=== PATIENT | female | born 1975 | race Caucasian/White ===

== ENCOUNTER → 2020-09-27 15:01 | Outpatient (CLI) | payer BC, SELFPAY ==
[2020-09-27 17:00] LABS: Basophils # 0.1 K/mm3 (0-0.2); Basophils % 0.6 % (0.1-2.0); Eosinophils # 0.4 K/mm3 (0.0-0.4); Eosinophils % 4.9 % (0.1-12.0); Hematocrit 40.7 % (37.0-47.0); Hemoglobin 13.9 g/dL (12.2-16.2); Lymphocytes # 2.6 K/mm3 (0.7-4.5); Lymphocytes % 33.8 % (10-50); Mean Corpuscular HGB Conc 34.1 g/dL (31.8-35.4); Mean Corpuscular Volume 84.9 fl (81-99); Mean Platelet Volume 9.6 fl (7.4-10.4); Monocytes # 0.5 K/mm3 (0.1-1.0); Monocytes % 5.8 % (1.7-9.3); Neutrophils # 4.3 K/mm3 (1.8-7.8); Neutrophils % 54.9 % (37.0-80.0); Platelet Count 255 K/mm3 (142-424); Red Blood Count 4.79 M/mm3 (4.20-5.40); Red Cell Distribution Width 13.3 % (11.5-17.5); White Blood Count 7.8 K/mm3 (4.8-10.8)
[2020-09-27 17:25] LABS: Alanine Aminotransferase 25 U/L (12-78); Albumin Level 4.4 g/dl (3.5-5.0); Albumin/Globulin Ratio 1.6 (1.1-1.8); Alkaline Phosphatase 71 U/L (38-126); Anion Gap 10.3 mEq/L (5-15); Aspartate Amino Transferase 32 U/L (14-36); Bilirubin,Total 0.6 mg/dl (0.2-1.3); Blood Urea Nitrogen 14 mg/dl (7-17); Calcium 9.2 mg/dl (8.4-10.2); Carbon Dioxide 28 mmol/L (22.0-30.0); Chloride 104 mmol/L (98-107); Chol/HDL Ratio 5.6 (1-3.5); Cholesterol 228 mg/dl (140-200); Estimated Glomerular Filt Rate 108 ml/min (>60); GFR (African American) 131 ML/MIN (>60); Globulin 2.7 g/dL (1.3-3.2); Glucose 101 mg/dl (74-100); HDL Cholesterol 41 mg/dl (40-60); Potassium 3.3 mmoL/L (3.5-5.1); Sodium 139 mmol/L (136-145); Total Protein,Serum 7.1 g/dl (6.3-8.2); Triglycerides 298 mg/dl (30-150); VLDL Cholesterol 60 mg/dL (0-40)
[2020-09-27 17:36] LABS: Direct LDL Cholesterol 138.36 mg/dL (100-129)
== END ==
PROVIDERS: Visit Provider Family Medicine
DX: E78.5 Hyperlipidemia, unspecified (principal); Z79.899 Other long term (current) drug therapy
CPT/HCPCS: 80053; 80061; 84436; 84443; 85025

== ENCOUNTER 2021-01-01 07:45 | Emergency (ER) | payer BC, SELFPAY ==
[2021-01-01 07:47] VITALS: BP 143/88; PULSE 102; RESP 26; TEMP 37.1; O2SAT 96; BMI 31.6
--- NOTE | 2021-01-01 07:58 | ECG_ITS ---
APPROVED REPORT Exam: Resting ECG HR:91 bpm ECG Measurements Heart Rate 91 AXES MT 158 P 11 QRSd 98 QRS -42 QT 364 T 191 QTc 447 Conclusion Normal sinus rhythm Left axis deviation Left ventricular hypertrophy with repolarization abnormality Abnormal ECG Electronically signed by : Srikanth Mcnamara MD 01/02/2021 16:03:47
--- NOTE | 2021-01-01 08:05 | XR_ITS ---
PROCEDURE INFORMATION: Exam: XR Chest Exam date and time: 01/01/2021 8:05 AM Age: 45 years old Clinical indication: Cough and dyspnea and fever and other: Chest tightness; Patient HX: HX of patient with covid; Additional info: Chest pain TECHNIQUE: Imaging protocol: XR of the chest. Views: 1 view. COMPARISON: No relevant prior studies available. FINDINGS: Lungs: There is airspace disease in both lungs. This may be secondary to multifocal pneumonia. Pleural spaces: Unremarkable. No pleural effusion. No pneumothorax. Heart/Mediastinum: Unremarkable. No cardiomegaly. Bones/joints: Unremarkable. IMPRESSION: There is airspace disease in both lungs. This may be secondary to multifocal pneumonia.
--- NOTE | 2021-01-01 08:11 | HMH.EDGENADL ---
ED Disposition Clinical Impression: Pneumonia due to COVID-19 virus Disposition: Home, Self-Care Condition on Discharge: Good Instructions: Pneumonia-Adult Prescriptions: Azithromycin 250 mg PO DAILYDM 5 Days #6 tab Transmission Status: Pending to [facility] Cefdinir [Omnicef 300mg Capsule] 300 mg PO BID #20 cap Transmission Status: Pending to [facility] Referrals: Myke Goodrich MD [Primary Care Provider] - - Critical Care Critical Care Time: No Attestation: On , the high probability of a clinically significant, sudden or life threatening deterioration of the following system(s) required my full and direct attention, intervention and personal management. The time I documented below is in addition to time spent performing reported procedures but includes the following listed in this critical care notation. Medical Decision Making - Medical Records Medical records reviewed: Yes: I reviewed the patient's medical records. - Wilfredo Inquiry Pt receiving controlled substance: No Vital Signs: 01/01/21 07:47 Temperature 98.8 F Temperature Source Oral Pulse Rate [Radial] 102 H Respiratory Rate 26 H Blood Pressure [Right Arm] 143/88 H Blood Pressure Mean [Right Arm] 106 Blood Pressure Position [Right Arm] Sitting 02 Sat by Pulse Oximetry 96 Oxygen Delivery Method Room Air - Lab Data Lab Results 01/01/21 08:00: WBC 5.7, RBC 5.23, Hgb 15.3, Hct 45.1, MCV 86.1, MCH 29.3, MCHC 34.0, RDW 13.0, Plt Count 193, MPV 7.9, Neut % (Auto) 78.4, Lymph % (Auto) 16.3, [place] % (Auto) 4.7, Eos % (Auto) 0.0 L, Baso % (Auto) 0.4, Neut # (Auto) 4.4, Lymph # (Auto) 0.9, [place] # (Auto) 0.3, Eos # (Auto) 0.0, Baso # (Auto) 0.0 01/01/21 08:00: SARS-CoV-2 (PCR) Detected A, Influenza A Untype (PCR) Not detected, Influenza Type B (PCR) Not detected 01/01/21 08:00: Sodium 137, Potassium 3.0 L, Chloride 97 L, Carbon Dioxide 29, Anion Gap 14.0, BUN 14, Creatinine 0.80, Estimated Creat Clear 109, Estimated GFR 77, Est GFR ( Amer) 93, Glucose 126 H, Calcium 9.0, Total Bilirubin 0.2, AST 71 H, ALT 72, Alkaline Phosphatase 79, Troponin I < 0.01, Total Protein 7.2, Albumin 4.1, Globulin 3.1, Albumin/Globulin Ratio 1.3 Result diagrams: 01/01/21 08:00 01/01/21 08:00 Orders (Tests/Meds): ED MEDICATIONS Generic Name Dose Route Start Last Admin Trade Name Smith PRN Reason Stop Dose Admin Lactated Ringer's 1,000 mls @ 999 mls/hr 01/01/21 09:00 Lactated Ringer's 1000 Ml Bag IV 01/01/21 10:00 .Q1H1M [facility] ORDERS Category Date Time Status XR chest portable Stat Exams 01/01/21 08:05 Taken BNP [Brain Natriuretic Peptide] Stat Lab 01/01/21 08:00 Received Troponin I Q3H Lab 01/01/21 11:15 Ordered Troponin I Q3H Lab 01/01/21 14:15 Ordered Medical Decision Narrative: Pt to the ED today for shortness of breath and chest tightness. DDx includes post viral pneumonia, ACS, pulmonary edema, viral pnuemonia. Workup to include CBC, CMP, troponin 0 and 3 hr, CXR. Pt appears to feel unwell on evaluation, no acute distress, no hypoxia, HR 102, no fever, although feels warm to the touch. XR independently interpreted with evidence of bilateral infiltrates in the mid lower zones, consistent with physical exam. Could be pna or pulmonary edema. Will further evaluate with bedside cardiac US and pulmonary US. Bedside ECHO shows visually normal EF, no enlarged RV, no heart strain, no pericardial effusion. Pts COVID 19 testing is positive, and I informed the patient. Pts initial troponin within normal limits and I have added on a BNP. I told patient that normally we would obtain a second troponin at 3 hours, however, she states that she would prefer to go home. Although I do believe it is unlikely for patient to be in ACS, nany given that her pain has been ongoing and inconsistent, atypical for 3 weeks now, i advised that the safer option is to get the full set and discussed the risks of not getting this test. She pre
[2021-01-01 08:12] LABS: Influenza A, PCR Not Detected (NotDetected); Influenza B, PCR Not Detected (NotDetected)
[2021-01-01 08:15] LABS: Basophils % 0.4 % (0.1-2.0); Hematocrit 45.1 % (37.0-47.0); Hemoglobin 15.3 g/dL (12.2-16.2); Lymphocytes # 0.9 K/mm3 (0.7-4.5); Lymphocytes % 16.3 % (10-50); Mean Corpuscular Hemoglobin 29.3 pg (27.0-31.2); Mean Corpuscular Volume 86.1 fl (81-99); Mean Platelet Volume 7.9 fl (7.4-10.4); Monocytes # 0.3 K/mm3 (0.1-1.0); Monocytes % 4.7 % (1.7-9.3); Neutrophils # 4.4 K/mm3 (1.8-7.8); Neutrophils % 78.4 % (37.0-80.0); Platelet Count 193 K/mm3 (142-424); Red Blood Count 5.23 M/mm3 (4.20-5.40); White Blood Count 5.7 K/mm3 (4.8-10.8)
[2021-01-01 08:16] LABS: Chloride 97 mmol/L (98-107); Sodium 137 mmol/L (136-145)
[2021-01-01 08:19] LABS: Alanine Aminotransferase 72 U/L (12-78); Albumin Level 4.1 g/dl (3.5-5.0); Albumin/Globulin Ratio 1.3 (1.1-1.8); Alkaline Phosphatase 79 U/L (38-126); Aspartate Amino Transferase 71 U/L (14-36); Bilirubin,Total 0.2 mg/dl (0.2-1.3); Blood Urea Nitrogen 14 mg/dl (7-17); Carbon Dioxide 29 mmol/L (22.0-30.0); Creatinine Clearance Estimated 109 mL/min (50-200); Estimated Glomerular Filt Rate 77 ml/min (>60); GFR (African American) 93 ML/MIN (>60); Globulin 3.1 g/dL (1.3-3.2); Total Protein,Serum 7.2 g/dl (6.3-8.2)
[2021-01-01 08:20] LABS: Glucose 126 mg/dl (74-100)
--- NOTE | 2021-01-01 08:30 | PC.NURSE ---
Critical potassium called to Martha chun RN
[2021-01-01 08:38] LABS: Coronavirus 19, PCR Detected (NotDetected)
[2021-01-01 08:40] LABS: Troponin I < 0.01 ng/ml (0.00-0.034)
[2021-01-01 09:07] LABS: NT Pro Brain Natriuretic Pep. 49.7 pg/mL (0-125)
[2021-01-01 09:59] VITALS: BP 137/87; PULSE 102; RESP 28; TEMP 37.1; O2SAT 98
== END 2021-01-01 10:00 | disposition home or self-care (01) ==
PROVIDERS: Emergency Provider Student in an Organized Health Care Education/Training Program; PCP Emergency Medicine
DX: U07.1 COVID-19 (principal); J12.82 Pneumonia due to coronavirus disease 2019; I10 Essential (primary) hypertension; E78.5 Hyperlipidemia, unspecified; M79.7 Fibromyalgia
CPT/HCPCS: 71045; 80053; 83880; 84484; 85025; 93005; 96365; 99283; C9803; U0003; U0005

== ENCOUNTER → 2021-01-20 15:13 | Outpatient (CLI) | payer BC, SELFPAY ==
--- NOTE | 2021-01-20 15:21 | XR_ITS ---
PROCEDURE: XR CHEST PORTABLE CLINICAL HISTORY: covid pneumonia COMPARISON: CR XR CHEST PORTABLE from 01/01/2021 FINDINGS: Borderline cardiomegaly without failure. There are some residual atelectatic changes in both the mid lungs with some minimal opacification in the right midlung. No acute bony abnormalities. IMPRESSION: Persistent but improving right midlung infiltrate with some residual atelectatic or fibrotic changes in both mid lungs Dictated by: Otto Orozco MD 01/20/2021 15:47 Otto Orozco MD in [place] 01/20/2021 15:47
== END ==
PROVIDERS: PCP Family Medicine; Visit Provider Family Medicine
DX: R05 Cough (principal); Z86.16 Personal history of COVID-19
CPT/HCPCS: 71045

== ENCOUNTER 2021-07-17 09:10 | Emergency (ER) | payer BC, SELFPAY ==
--- NOTE | 2021-07-17 09:18 | HMH.EDUTC ---
[facility] Disposition Clinical Impression: Viral syndrome, Bronchitis Disposition: Home, Self-Care Condition on Discharge: Good Instructions: DI for Viral Syndrome, DI for Acute Bronchitis Additional Instructions: Drink plenty of fluids. Take tylenol or ibuprofen for pain or fever. Take the medications as directed. Follow up with your regular doctor. GO TO THE ER FOR ANY WORSENING SYMPTOMS Prescriptions: methylPREDNISolone [Medrol] 4 mg PO DIRECTED 6 Days #21 packet Transmission Status: Pending to [facility] Azithromycin [Z-Elroy 250mg Tab*] 250 mg PO UD DOSE PK #6 tab Transmission Status: Pending to [facility] Referrals: Provider,Referral, [Primary Care Provider] - Forms: Work/School Release Time of Disposition: 10:02 Medical Decision Making - Medical Records Medical records reviewed: No: I reviewed the patient's medical records. - Wilferdo Inquiry Pt receiving controlled substance: No Vital Signs: 07/17/21 09:24 Temperature 98.9 F Temperature Source Oral Pulse Rate [Left] 115 H Respiratory Rate 18 Blood Pressure [Right Arm] 149/88 H Blood Pressure Mean [Right Arm] 108 02 Sat by Pulse Oximetry 98 - Lab Data Lab Results 07/17/21 09:24: Influenza Type A Ag Negative, Influenza Type B Ag Negative Orders (Tests/Meds): ORDERS Category Date Time Status Rapid Strep Scrn Group A [Strep Scrn Group A (Rapid)] Lab 07/17/21 09:25 Received Stat [facility] HPI - General Stated complaint: LOPEZ, fever, bodyaches Time Seen by Provider: 07/17/21 09:19 - History of Present Illness Provider Complaint: She states that for the past 1 day, she has been having chills, low grade fever, cough and congestion. - Related Data Home Medications Medication Instructions Recorded Confirmed aspirin 325 mg tablet 325 mg PO BID 11/28/18 02/08/21 meloxicam 7.5 mg tablet 7.5 mg PO BID tab 11/28/18 02/08/21 Previous Rx's Medication Instructions Recorded phenazopyridine 200 mg tablet 200 mg PO TID PRN 0 Days #6 tab 06/12/19 ondansetron HCl 4 mg tablet 4 mg PO Q8H PRN #20 tab 12/29/20 topiramate 100 mg tablet 100 mg PO DAILY #30 tab 12/30/20 benzonatate 200 mg capsule 200 mg PO TID PRN #60 cap 01/20/21 azithromycin 500 mg tablet 500 mg PO DAILY 3 Days #3 tab 02/08/21 methylprednisolone 4 mg tablets in See Rx Instructions PO PER PKG DIR 02/08/21 a dose pack #21 tab chlorthalidone 50 mg tablet 50 mg PO DAILY #30 tab 05/24/21 pravastatin 20 mg tablet 20 mg PO QHS #30 tab 05/24/21 Azithromycin [Z-Elroy 250mg Tab*] 250 mg PO UD DOSE PK #6 tab 07/17/21 methylPREDNISolone [Medrol] 4 mg PO DIRECTED 6 Days #21 07/17/21 packet Allergies Allergy/AdvReac Type Severity Reaction Status Date / Time No Known Allergies Allergy Verified 02/08/21 16:37 [facility] History - Hepatitis A Screen Attestation statement:: This patient has been screened for Hepatitis A risk factors. I have reviewed the patient's past medical history: Yes Medical History: Reports:: Hyperlipidemia, Hypertension Denies:: Cancer, Chronic Obstructive Pulmonary Disease (COPD), Diabetes Mellitus Type 1, Diabetes Mellitus Type 2, Internal Pacemaker, Pulmonary Embolism, Seizures, Transient Ischemic Attacks (TIA) Other Medical History: Denies: Arthritis, Fibromyalgia, Thyroid Disease Other Surgeries: Yes: Appendectomy, Colonoscopy, Colon Resection, Hernia Repair, Hysterectomy-Total, Hysterectomy-Partial, Other. No: Pacemaker Amputation: No Fractures: Yes Comment: Hernia removal, hemorrhoid removal - Social History Smoking Status: Never smoker Alcohol Intake: current Alcohol Intake Frequency:: holidays/special occasions only Substance Use Type: denies use Occupational Status: employed Housing: house Household Members: family Family Hx:: Thyroid Disorder, Diabetes ROS Obtained: Yes All systems reviewed & no additional complaints - Constitutional Constitutional: Reports as per HPI - Eyes Eyes
[2021-07-17 09:24] VITALS: BP 149/88; PULSE 115; RESP 18; TEMP 37.2; O2SAT 98; BMI 30.8
[2021-07-17 09:43] LABS: UTC Influenza A Antigen Negative (Negative)
[2021-07-17 09:44] LABS: UTC Influenza B Antigen Negative (Negative)
[2021-07-17 10:05] LABS: Strep Scrn Group A (Rapid) Negative (Negative)
[2021-07-17 10:10] VITALS: BP 149/88; PULSE 115; RESP 18; TEMP 37.2
== END 2021-07-17 10:10 | disposition home or self-care (01) ==
PROVIDERS: Emergency Provider Nurse Practitioner Family
DX: J20.9 Acute bronchitis, unspecified (principal); B34.9 Viral infection, unspecified; I10 Essential (primary) hypertension
CPT/HCPCS: 87430; 87804; 99213; G0463

== ENCOUNTER → 2021-10-31 14:36 | Outpatient (CLI) | payer BC, SELFPAY ==
--- NOTE | 2021-10-31 14:45 | XR_ITS ---
FINAL REPORT TECHNIQUE: 5 views CLINICAL HISTORY: RT LEG PAIN,ANESTHESIA OF SKIN FINDINGS: LUMBAR SPINE Five views of the lumbar spine were obtained. There is no acute fracture. There is no malalignment. The disc spaces are preserved. There is no soft tissue abnormality. IMPRESSION: No acute bony abnormality. Reviewed, Interpreted and Dictated by Sivkaumar Lanier MD Transcribed by Jovanna West Authenticated and [facility]
== END ==
PROVIDERS: PCP Family Medicine; Visit Provider Nurse Practitioner Family
DX: M79.604 Pain in right leg (principal); R20.0 Anesthesia of skin; R20.2 Paresthesia of skin
CPT/HCPCS: 72110

== ENCOUNTER → 2021-11-02 09:37 | Outpatient (CLI) | payer BC, SELFPAY ==
[2021-11-02 10:05] LABS: Basophils # 0.2 K/mm3 (0-0.2); Basophils % 1.9 % (0.1-2.0); Eosinophils # 0.4 K/mm3 (0.0-0.4); Eosinophils % 4.3 % (0.1-12.0); Hematocrit 43.8 % (37.0-47.0); Hemoglobin 14.2 g/dL (12.2-16.2); Lymphocytes # 2.1 K/mm3 (0.7-4.5); Lymphocytes % 26.3 % (10-50); Mean Corpuscular HGB Conc 32.5 g/dL (31.8-35.4); Mean Corpuscular Volume 89.3 fl (81-99); Mean Platelet Volume 8.7 fl (7.4-10.4); Monocytes # 0.5 K/mm3 (0.1-1.0); Monocytes % 5.6 % (1.7-9.3); Neutrophils % 61.9 % (37.0-80.0); Platelet Count 218 K/mm3 (142-424); White Blood Count 8.1 K/mm3 (4.8-10.8)
[2021-11-02 10:20] LABS: Alanine Aminotransferase 35 U/L (12-78); Albumin Level 4.3 g/dl (3.5-5.0); Alkaline Phosphatase 73 U/L (38-126); Anion Gap 11.4 mEq/L (5-15); Aspartate Amino Transferase 36 U/L (14-36); Bilirubin,Indirect 0.2 mg/dL (0.0-0.9); Bilirubin,Total 0.2 mg/dl (0.2-1.3); Bilirubin,Unconjugated 0.6 mg/dL (0.0-1.1); Blood Urea Nitrogen 21 mg/dl (7-17); Calcium 9.5 mg/dl (8.4-10.2); Carbon Dioxide 32 mmol/L (22.0-30.0); Chloride 101 mmol/L (98-107); Chol/HDL Ratio 5.2 (1-3.5); Cholesterol 220 mg/dl (140-200); Estimated Glomerular Filt Rate 90 ml/min (>60); GFR (African American) 109 ML/MIN (>60); Glucose 114 mg/dl (74-100); HDL Cholesterol 42 mg/dl (40-60); Magnesium 1.7 mg/dl (1.6-2.3); Potassium 3.4 mmoL/L (3.5-5.1); Sodium 141 mmol/L (136-145); Triglycerides 175 mg/dl (30-150); VLDL Cholesterol 35 mg/dL (0-40)
[2021-11-02 10:30] LABS: Direct LDL Cholesterol 149.27 mg/dL (100-129)
[2021-11-02 10:50] LABS: Thyroid Stimulating Hormone 1.14 uIU/mL (0.465-4.68)
== END ==
PROVIDERS: PCP Nurse Practitioner Family; Visit Provider Nurse Practitioner
DX: R06.00 Dyspnea, unspecified (principal); R07.9 Chest pain, unspecified; R42 Dizziness and giddiness; R53.83 Other fatigue; R94.31 Abnormal electrocardiogram [ECG] [EKG]
CPT/HCPCS: 36415; 80048; 80061; 80076; 83735; 84439; 84443; 85025

== ENCOUNTER → 2021-11-09 12:12 | Outpatient (CLI) | payer BC, SELFPAY ==
--- NOTE | 2021-11-09 12:37 | NM_ITS ---
APPROVED REPORT Exam: Nuclear Stress Test Indication: chest pain..short of breath Patient Location: Outpatient Stress Tech: Kate Gage RI Tech:Priscilla Salas NANCY RT(R)(N) Ht: 5 ft 2 in Wt: 182 lbs Bra Size: 38dd HR: 74 bpm BP: 156/101 mmHg BSA: 1.84 m2 TID: 1.10 BMI: 33.2 History: chest pain..short of breath Procedure: Patient exercised on Manan protocol 6 minutes and sec, resting heart rate 74 bpm, resting blood pressure 156/101 mmHg, with exercise maximum heart rate achived was 146 bpm which is 84 % of the maximum predicted heart rate and blood pressure was 210/110 mmHg. Patient denied any complaint of chest pain. Patient has Adequate exercise capacity, achieved 7.0 METs of workload on treadmill, the blood pressure response to exercise was Hypertensive. Electrocardiogram Resting electrocardiogram shows sinus rhythm, with exercise there is less than 1.[address] segment depression noted from the baseline EKG. The EKG portion of the exercise Myoview was nondiagnostic as patient did not achieve the target heart rate. Cardiac Stress and Resting SPECT Images: Cardiac Stress and Resting SPECT images were obtained using technetium 99m Myoview 32.0 mCi stress and 10.24 mCi at rest. Gated SPECT for analysis of segmental wall motion and calculation of the ejection fraction also done. Prone images were also obtained. Cardiac stress and rest SPECT images show uniform myocardial activity without segmental perfusion abnormality, computer derived ejection fraction is 50% with no regional wall motion abnormality, right ventricle is normal size and contractility. Conclusion: 1. The EKG portion of exercise Myoview is nondiagnostic as patient did not achieve the target heart rate, patient has adequate exercise capacity achieved 7 METS of workload on treadmill, the blood pressure response to exercise was hypertensive, this was started to chest pressure and shortness of breath. 2. No scintigraphic evidence of reversible ischemia seen at this level of exercise, computer derived ejection fraction 50% with no regional wall motion abnormality, right ventricle is normal size and contractility. 3. Clinically abnormal stress test as patient complains of chest pressure and shortness of breath however perfusion imaging did not show any reversible ischemia. Clinical correlation is recommended. Electronically signed by : Biju Becerril MD 11/10/2021 06:33:16
--- NOTE | 2021-11-09 12:42 | CA_ITS ---
APPROVED REPORT EXAM: Comprehensive 2D, Doppler, and color-flow Echocardiogram [employer] Foreman: Debbie Jade RT(R) Ht: 5 ft 3 in Wt: 182lbs BSA: 1.86 BP: 144/93 mmHg Indications: CP, SOB, LIMON, HTN, HLD, dizziness, ABN EKG, fatigue. 2D Dimensions LVOT 2.00 cm (M/F) 1.5-2.5 LVEF (Girard's) 43.90 % F: 54 - 74 LV Volume 93.00 mL F: 46 - 106 LV Volume Index 50.27 mL/m2 F: 29 - 61 LA Volume 26.10 mL LA Volume Index 14.10 mL/m2 (M/F) 16-34 M-Mode Dimensions RVDd 2.93 cm (0.9-2.6) LA Diam 3.51 cm (1.9-4.0) LVDd 5.58 cm (3.5-5.7) Ao Diam 2.66 cm (2.0-3.7) LVDs 4.10 cm (3.5-5.7) IVSd 0.96 cm (0.6-1.1) PWd 0.84 cm (0.6-1.1) EF (Teich) 51.30% FS 26.50% EDV (Teich) 152.40 mL ESV (Teich) 74.20 mL LV Diastology E Decel Time 137.00 (160-240 msec) E/A Ratio 0.7 MED E' 4.80 (< 7 cm/sec) E'/MED E' Ratio 13.13 (>14) LAT E' 7.90 (<10 cm/sec) E/LAT E' Ratio 7.97 (>14) Mitral Valve MV E Max Jesus. 63.00 (40-130 cm/s) MV A Velocity 91.00 (40-130 cm/s) E/A Ratio 0.70 MV Decel. Time 137.00 (160-240 ms) MV PHT 40.00 ms Left Ventricle Left atrium is mildly enlarged, left ventricle is normal size mild concentric left ventricular hypertrophy, estimated ejection fraction 55% with no regional wall motion abnormality, grade 1 diastolic dysfunction seen without tissue Doppler evidence of raise left atrial pressure. Right Ventricle Right atrium and right ventricle are mildly enlarged with normal contractility. Aortic Valve Aortic valve is minimally thickened and fibrosed there is no aortic stenosis or aortic insufficiency. Mitral Valve Mitral valve grossly normal, there is trace mitral regurgitation. Tricuspid Valve Tricuspid grossly normal, there is trace tricuspid regurgitation, tricuspid regurgitation jet velocity is inadequate for calculation of the right ventricular systolic pressure. Pulmonic Valve Pulmonic valve is poorly visualized. Great Vessels Aortic root is normal size. Inferior vena cava is poorly visualized. Pericardium No significant pericardial effusion noted. Conclusion 1. Mild biatrial enlargement, normal left ventricular size, mild concentric left ventricular hypertrophy, estimated ejection fraction 55% with no regional wall motion abnormality, grade 1 diastolic dysfunction seen without tissue Doppler evidence of raise left atrial pressure. 2. Trace mitral and tricuspid regurgitation. 3. No significant pericardial effusion. 4. Inferior vena cava is poorly visualized. Electronically signed by : Biju Becerril MD 11/10/2021 06:19:14
--- NOTE | 2021-11-09 13:53 | HMH.ITSHM ---
Current Home Medications as stated by this patient Steffi Elias or desk representative. []TOPIRAMATE ROSUVASTATIN PRAVASTATIN NAPROXEN FAMOTIDINE CHLORTHALIDONE ASA
--- NOTE | 2021-11-09 14:12 | CA_ITS ---
APPROVED REPORT Exam: Exercise Treadmill Technologist: Kate Champion, Ht: 5 ft 3 in Wt: 182 lbs BSA: 1.86 m2 HR: 68 bpm BP: 160/93 mmHg Medical History Medications: Aspirin,,,,, Pravastatin,,,,, TopIRAMATE,,,,, Naproxen,,,,, Famotidine,,,,, CHlorthalidone,,,,, Stress Test Details Test: Manan HR Resting HR: 74 bpm Max Heart Rate (APMHR): 173.097712 bpm Max HR Achieved: 146 bpm Target HR (85% APMHR): 147.453593 bpm % of APMHR: 84.39 Recovery HR: 82 bpm BP Resting BP: 156/101 mmHg Max BP: 210/110 mmHg Recovery BP: 175.0/99.0 mmHg ECG Resting ECG: NSR, L axis deviation, slow R wave progression Clinical Exercise duration: 06:00 min Highest Stage Achieved: II Exercise capacity: 7.0 METs Stress ECG Conclusion Exercised 6:00 on Manan Protocol. Completing stage II. Max HR: 145 % of PM: 84% Max BP: 210/110 METs: 7.0 Test stopped due to: SOA, chest pressure, frequent PVCs. Symptoms: Progressively increasing chest pressure with exercise. Arrhythmias/Ectopy: Frequent isolated PVCs with periods of V. bigeminy. Rare PAC. One nonconducted p wave. ST-T Changes: Normal ST response to exercise for the HR achieved. Conclusion: CP & frequent V. ectopy without ischemic ST changes. Myoview images reported separately. Test Summary REST . . . . . . . Sitting REST . . . . . . . Standing REST 04:38 0.0 0.0 74 . 156/101 . . Stage 1 01:00 10.0 1.7 115 . . . . Stage 1 02:00 10.0 1.7 122 . . . . Stage 1 03:00 10.0 1.7 120 . 210/110 . . Stage 2 01:00 12.0 2.5 133 . . . . Stage 2 02:00 12.0 2.5 135 . . . . Stage 2 03:00 12.0 2.5 143 . . . Stop exercise at 06:00 RECOVERY 01:00 0.0 0.0 115 . . . . RECOVERY 02:00 0.0 0.0 106 . . . . RECOVERY 03:00 0.0 0.0 78 . 188/108 . . RECOVERY 04:00 0.0 0.0 85 . 172/100 . . RECOVERY 05:00 0.0 0.0 83 . 172/100 . . RECOVERY 05:56 0.0 0.0 87 . 175/ 99 . . Electronically signed by : Biju Becerril MD 11/10/2021 06:29:12
== END ==
PROVIDERS: PCP Nurse Practitioner Family; Visit Provider Nurse Practitioner
DX: R06.00 Dyspnea, unspecified (principal); R07.9 Chest pain, unspecified; R42 Dizziness and giddiness; R53.83 Other fatigue; R94.31 Abnormal electrocardiogram [ECG] [EKG]
CPT/HCPCS: 78452; 93017; 93306; A9502

== ENCOUNTER → 2021-11-15 14:03 | Outpatient (CLI) | payer BC, SELFPAY ==
[2021-11-15 14:25] LABS: Basophils # 0.1 K/mm3 (0-0.2); Basophils % 0.7 % (0.1-2.0); Eosinophils # 0.3 K/mm3 (0.0-0.4); Eosinophils % 3.1 % (0.1-12.0); Hematocrit 40.9 % (37.0-47.0); Hemoglobin 14.4 g/dL (12.2-16.2); Lymphocytes # 2.9 K/mm3 (0.7-4.5); Lymphocytes % 31.2 % (10-50); Mean Corpuscular HGB Conc 35.3 g/dL (31.8-35.4); Mean Corpuscular Hemoglobin 29.5 pg (27.0-31.2); Mean Corpuscular Volume 83.6 fl (81-99); Mean Platelet Volume 8.3 fl (7.4-10.4); Monocytes # 0.5 K/mm3 (0.1-1.0); Monocytes % 5.7 % (1.7-9.3); Neutrophils # 5.5 K/mm3 (1.8-7.8); Neutrophils % 59.4 % (37.0-80.0); Platelet Count 253 K/mm3 (142-424); Red Blood Count 4.89 M/mm3 (4.20-5.40); Red Cell Distribution Width 13.1 % (11.5-17.5); White Blood Count 9.3 K/mm3 (4.8-10.8)
[2021-11-15 15:18] LABS: Anion Gap 9.1 mEq/L (5-15); Blood Urea Nitrogen 17 mg/dl (7-17); Carbon Dioxide 30 mmol/L (22.0-30.0); Chloride 105 mmol/L (98-107); Estimated Glomerular Filt Rate 90 ml/min (>60); GFR (African American) 109 ML/MIN (>60); Glucose 99 mg/dl (74-100); Potassium 3.1 mmoL/L (3.5-5.1); Sodium 141 mmol/L (136-145)
== END ==
PROVIDERS: PCP Nurse Practitioner Family; Visit Provider Nurse Practitioner
DX: Z01.812 Encounter for preprocedural laboratory examination (principal); Z20.822 Contact with and (suspected) exposure to COVID-19; R06.00 Dyspnea, unspecified; R07.9 Chest pain, unspecified; R42 Dizziness and giddiness; I20.8 Other forms of angina pectoris; R53.83 Other fatigue; R94.30 Abnormal result of cardiovascular function study, unspecified; R94.31 Abnormal electrocardiogram [ECG] [EKG]
CPT/HCPCS: 36415; 80048; 85025; C9803; U0003; U0005

== ENCOUNTER 2021-11-16 09:00 | Day surgery (SDC) | payer BC, SELFPAY ==
[2021-11-16] VITALS (18 sets, daily range): BP systolic 124–144; BP diastolic 70–93; PULSE 3–82; RESP 18; TEMP 36.9; O2SAT 93–99; BMI 31.8
--- NOTE | 2021-11-16 | IR_ITS ---
APPROVED REPORT Patient Location: Outpatient PROCEDURES Left heart catheterization Left ventriculogram Selective coronary angiogram INDICATION Angina pectoris, Abnormal stress test Informed consent was obtained prior to the procedure. COMPLICATIONS None Estimated Blood Loss: Less than 10 mls TECHNIQUE One percent lidocaine used to anesthetize the right anterior aspect of the wrist. The right radial artery was accessed via the Seldinger technique. A 6 Maltese sheath was placed in the right radial artery. 2.5 mg of verapamil, 800 mcg of nitroglycerin, 1mg Lidocaine and 5000 U Heparin were given through the arterial sheath. The papa catheter was also used to perform left heart catheterization, left ventriculogram and selective coronary angiogram. At the end of the procedure the sheath was removed good hemostasis was achieved using Traclet band, patient was transferred to the postop holding area in stable condition. ANGIOGRAPHIC RESULTS The left main artery Normal The left anterior descending artery Normal with diffuse ALICE II flow The circumflex artery Normal with diffuse ALICE II flow The right coronary artery Dominant large tortuous angiographically normal with ALICE II flow The SALTER ventriculogram reveals Normal 65% The left ventricular end-diastolic pressure 22 mmHg IMPRESSION Normal coronary arteries without evidence of angiographic stenosis or atherosclerotic plaque Diffuse slow flow down the coronary arteries consistent with endothelial dysfunction Normal left ventricular function Elevated LVEDP consistent with diastolic dysfunction PLAN 1. Treatment of diastolic dysfunction 2. Treatment of endothelial dysfunction Electronically signed by : Oli Ryan MD 11/16/2021 11:18:36
== END 2021-11-16 14:19 | disposition home or self-care (01) ==
LOC: CATHLAB 09:02
PROVIDERS: PCP Nurse Practitioner Family; Visit Provider Internal Medicine
DX: I25.118 Atherosclerotic heart disease of native coronary artery with other forms of angina pectoris (principal); I10 Essential (primary) hypertension; R94.39 Abnormal result of other cardiovascular function study; Z79.899 Other long term (current) drug therapy
CPT/HCPCS: 93458; 99152; C1725; C1769; J1644; Q9967

== ENCOUNTER → 2021-11-25 14:48 | Outpatient (CLI) | payer BC, SELFPAY ==
[2021-11-25 16:06] LABS: Anion Gap 11.4 mEq/L (5-15); Blood Urea Nitrogen 20 mg/dl (7-17); Carbon Dioxide 29 mmol/L (22.0-30.0); Chloride 102 mmol/L (98-107); Estimated Glomerular Filt Rate 90 ml/min (>60); GFR (African American) 109 ML/MIN (>60); Glucose 125 mg/dl (74-100); Potassium 3.4 mmoL/L (3.5-5.1); Sodium 139 mmol/L (136-145)
== END ==
PROVIDERS: PCP Nurse Practitioner Family; Visit Provider Physician Assistant
DX: R06.00 Dyspnea, unspecified (principal); R07.9 Chest pain, unspecified; R42 Dizziness and giddiness; I20.8 Other forms of angina pectoris; I10 Essential (primary) hypertension; R53.83 Other fatigue; R94.31 Abnormal electrocardiogram [ECG] [EKG]
CPT/HCPCS: 36415; 80048

== ENCOUNTER → 2022-02-22 14:10 | Outpatient (CLI) | payer BC, SELFPAY ==
[2022-02-22 15:31] LABS: Anion Gap 16.4 mEq/L (5-15); Blood Urea Nitrogen 24 mg/dl (7-17); Calcium 10.2 mg/dl (8.4-10.2); Carbon Dioxide 31 mmol/L (22.0-30.0); Chloride 102 mmol/L (98-107); Estimated Glomerular Filt Rate 59 ml/min (>60); GFR (African American) 72 ML/MIN (>60); Glucose 72 mg/dl (74-100); Potassium 4.4 mmoL/L (3.5-5.1); Sodium 145 mmol/L (136-145)
== END ==
PROVIDERS: PCP Nurse Practitioner Family; Visit Provider Nurse Practitioner
DX: I10 Essential (primary) hypertension (principal); E78.2 Mixed hyperlipidemia; R60.0 Localized edema
CPT/HCPCS: 36415; 80048

== ENCOUNTER 2022-07-12 14:46 | Emergency (ER) | payer BC, SELFPAY ==
[2022-07-12 14:47] VITALS: BP 141/88; PULSE 78; RESP 19; TEMP 37.1; O2SAT 96; BMI 35.8
--- NOTE | 2022-07-12 14:56 | CT_ITS ---
FINAL REPORT TECHNIQUE: After the administration of oral and intravenous contrast, axial images were obtained through the abdomen and pelvis by computed tomography. The study was performed with techniques to keep radiation dose as low as reasonably achievable, (ALARA). Individual dose reduction techniques using automated exposure control or adjustment of mA and/or kV according to the patient's size were employed. CLINICAL HISTORY: LLQ pain COMPARISON: none FINDINGS: Abdomen: The lung bases are clear. The liver parenchyma is homogeneous. The gallbladder is distended. There are multiple gallstones in the dependent portion of the gallbladder. The spleen is enlarged measuring up to 18 cm in craniocaudal dimension. The pancreas, adrenals, and kidneys appear unremarkable. The aorta is normal in caliber. There is no free fluid or adenopathy. Pelvis: The appendix is not identified. The urinary bladder is unremarkable. There is no free fluid or adenopathy. There is moderate sigmoid diverticulosis without evidence of diverticulitis. IMPRESSION: Marked splenomegaly. Gallstones. Sigmoid diverticulosis without diverticulitis. Reviewed, Interpreted and Dictated by Sivakumar Lanier MD Transcribed by Donna Hoskins Authenticated and [facility]
[2022-07-12 15:01] LABS: Microscopic, Urine URINE MICROSCOPIC (MICROSCOPIC)
[2022-07-12 15:07] LABS: Appearance,Urine CLEAR (Clear); Bilirubin,Urine Negative (Negative); Blood, Urine TRACE-I (Negative); Color,Urine YELLOW (Yellow); Glucose,Urine (UA) Negative (Negative); Ketones,Urine Negative (Negative); Leukocyte Esterase,Urine TRACE (Negative); Nitrate,Urine POSITIVE (Negative); Protein,Urine 1+ (Negative); Specific Gravity, Urine 1.025 (1.005-1.030); Urobilinogen,Urine 0.2 EU/dl (0.2)
[2022-07-12 15:14] LABS: Chloride 100 mmol/L (98-107)
[2022-07-12 15:15] LABS: Potassium 3.9 mmoL/L (3.5-5.1); Sodium 138 mmol/L (136-145)
[2022-07-12 15:18] LABS: Alanine Aminotransferase 30 U/L (12-78); Albumin Level 4.5 g/dl (3.5-5.0); Albumin/Globulin Ratio 1.3 (1.1-1.8); Alkaline Phosphatase 89 U/L (38-126); Anion Gap 12.9 mEq/L (5-15); Aspartate Amino Transferase 32 U/L (14-36); Bilirubin,Total 0.8 mg/dl (0.2-1.3); Blood Urea Nitrogen 22 mg/dl (7-17); Calcium 9.1 mg/dl (8.4-10.2); Carbon Dioxide 29 mmol/L (22.0-30.0); Creatinine Clearance Estimated 122 mL/min (50-200); Estimated Glomerular Filt Rate 77 ml/min (>60); GFR (African American) 93 ML/MIN (>60); Globulin 3.4 g/dL (1.3-3.2); Glucose 132 mg/dl (74-100); Lipase 118 U/L (23-300); Total Protein,Serum 7.9 g/dl (6.3-8.2)
[2022-07-12 15:22] LABS: Basophils # 0.1 K/mm3 (0-0.2); Basophils % 0.6 % (0.1-2.0); Eosinophils # 0.2 K/mm3 (0.0-0.4); Eosinophils % 1.2 % (0.1-12.0); Hematocrit 37.2 % (37.0-47.0); Hemoglobin 12.2 g/dL (12.2-16.2); Lymphocytes # 1.8 K/mm3 (0.7-4.5); Lymphocytes % 14.5 % (10-50); Mean Corpuscular HGB Conc 32.9 g/dL (31.8-35.4); Mean Corpuscular Hemoglobin 27.9 pg (27.0-31.2); Mean Corpuscular Volume 84.9 fl (81-99); Mean Platelet Volume 8.8 fl (7.4-10.4); Monocytes # 0.8 K/mm3 (0.1-1.0); Neutrophils # 9.8 K/mm3 (1.8-7.8); Neutrophils % 77.8 % (37.0-80.0); Platelet Count 246 K/mm3 (142-424); Red Blood Count 4.38 M/mm3 (4.20-5.40); Red Cell Distribution Width 13.5 % (11.5-17.5); White Blood Count 12.6 K/mm3 (4.8-10.8)
[2022-07-12 15:25] LABS: Bacteria,Urine 4+ /lpf; RBC,Urine Occasional #/hpf (0-3)
--- NOTE | 2022-07-12 16:11 | HMH.EDGENADL ---
Discharge Plan Disposition Patient Disposition: Home, Self-Care Prescriptions Prescriptions: New ciprofloxacin HCl [Cipro] 500 mg tablet 500 mg PO Q12H Qty: 20 0RF metronidazole [Flagyl] 375 mg capsule 375 mg PO BID 10 Days Qty: 20 0RF ondansetron 4 mg tablet,disintegrating 4 mg PO Q8H PRN (Reason: Nausea) Qty: 15 0RF No Action polyethylene glycol 3350 [Miralax] 17 gram/dose powder 17 g PO DAILY bisoprolol fumarate 5 mg tablet 5 mg PO DAILY Label Comments: TAKE 1 TABLET BY MOUTH ONCE DAILY naproxen 500 mg tablet 500 mg PO BID Label Comments: TAKE 1 TABLET BY MOUTH TWICE DAILY, PLEASE TAKE INSTEAD OF MELOXICAM rosuvastatin 40 mg tablet 40 mg PO DAILY Label Comments: TAKE 1 TABLET BY MOUTH ONCE DAILY omeprazole 40 mg capsule,delayed release(DR/EC) 40 mg PO DAILY triamterene-hydrochlorothiazid [Maxzide] 75-50 mg tablet 1 tab PO DAILY Referrals Follow up/Referrals: Priscilla Benson APRN [Primary Care Provider] - See instructions Activity Restrictions/Add. Instructions Additional Instructions/Restrictions: Follow-up with your primary care physician for evaluation of splenomegaly. You may need repeat imaging within the next year. If you have any other issues including pain vomiting weight loss fevers etc. follow-up with hematology for further management. Take antibiotics as prescribed return for worsening pain fever or any other concerns within the next 8 hours otherwise follow-up with your primary care physician within the next few days Clinical Impressions Clinical Impression: Diverticula of colon, Splenomegaly, not elsewhere classified Instructions Patient Instructions: DI for Acute Abdominal Pain Discharge ED Provider: Benny Perea General Adult HPI General Chief complaint: Abdominal Pain Stated complaint: Phys ref, Lt abd pain Time Seen by Provider: 07/12/22 14:50 Mode of Arrival: Ambulatory Source of Information: Patient Limitations: No Limitations Description of Symptoms (Recalled from ER Triage Doc. by RN): 46 F sent from her PCP's office for left anterior abdominal pain that radiates into her lower tranverse abdomen. She describes this as 7/10 dull and twisting type pain that began last night. Reports normal BM. Denies dysuria or loss of bowel/bladder. Patient reports history of several abdominal surgeries in the past. History of Present Illness HPI narrative: 46-year-old history of appendectomy, colectomy presents with 1 week of left lower quadrant abdominal pain. She was evaluated by her PCP this morning and sent to the emergency room for further evaluation. She claims to have a fever to 100 to this week however is afebrile right now. No chills chest pain shortness of air nausea vomiting diarrhea. No other dysuria or hematuria. Pain is dull nonradiating constant not worse with eating Related Data Home Medications Medication Instructions Recorded Confirmed polyethylene glycol 3350 17 17 g PO DAILY Constipation 02/23/22 07/12/22 gram/dose oral powder (Miralax) bisoprolol fumarate 5 mg tablet 5 mg PO DAILY High blood pressure 07/12/22 07/12/22 naproxen 500 mg tablet 500 mg PO BID Arthritis 07/12/22 07/12/22 omeprazole 40 mg capsule,delayed 40 mg PO DAILY Acid reflux 07/12/22 07/12/22 release rosuvastatin 40 mg tablet 40 mg PO DAILY Cholesterol 07/12/22 07/12/22 triamterene 75 1 tab PO DAILY High blood pressure 07/12/22 07/12/22 mg-hydrochlorothiazide 50 mg tablet (Maxzide) Previous Rx's Medication Instructions Recorded ciprofloxacin HCl 500 mg tablet 500 mg PO Q12H #20 tabs 07/12/22 (Cipro) metronidazole 375 mg capsule 375 mg PO BID 10 days #20 caps 07/12/22 (Flagyl) ondansetron 4 mg disintegrating 4 mg PO Q8H PRN Nausea #15 tabs 07/12/22 tablet Allergies Allergy/AdvReac Type Severity Reaction Status Date / Time norvasc AdvReac Mild edema of Uncoded 07/12/22 14:18 lower extremitie
[2022-07-12 17:08] VITALS: BP 139/76; PULSE 73; RESP 18; TEMP 37.1; O2SAT 97
== END 2022-07-12 17:10 | disposition home or self-care (01) ==
PROVIDERS: Emergency Provider Emergency Medicine; PCP Nurse Practitioner Family
DX: K57.93 Diverticulitis of intestine, part unspecified, without perforation or abscess with bleeding (principal)
CPT/HCPCS: 74177; 80053; 81001; 83690; 85025; 87086; 87088; 87186; 96361; 96374; 99284; 99285; J2405; Q9967

== ENCOUNTER → 2022-08-08 09:33 | Outpatient (CLI) | payer BC, SELFPAY ==
[2022-08-08 10:06] LABS: Basophils % 0.5 % (0.1-2.0); Eosinophils # 0.3 K/mm3 (0.0-0.4); Eosinophils % 4.8 % (0.1-12.0); Hematocrit 41.3 % (37.0-47.0); Hemoglobin 13.7 g/dL (12.2-16.2); Lymphocytes # 2.1 K/mm3 (0.7-4.5); Lymphocytes % 29.3 % (10-50); Mean Corpuscular HGB Conc 33.3 g/dL (31.8-35.4); Mean Corpuscular Hemoglobin 28.3 pg (27.0-31.2); Mean Corpuscular Volume 85.1 fl (81-99); Mean Platelet Volume 8.5 fl (7.4-10.4); Monocytes # 0.5 K/mm3 (0.1-1.0); Monocytes % 6.9 % (1.7-9.3); Neutrophils # 4.2 K/mm3 (1.8-7.8); Neutrophils % 58.6 % (37.0-80.0); Platelet Count 193 K/mm3 (142-424); Red Blood Count 4.85 M/mm3 (4.20-5.40); White Blood Count 7.1 K/mm3 (4.8-10.8)
[2022-08-08 10:35] LABS: Hemoglobin A1C 5.3 % (4.0-6.0)
[2022-08-08 10:43] LABS: Erythrocyte Sedimentation Rate 16 mm/hr (0-20)
[2022-08-08 11:14] LABS: Alanine Aminotransferase 34 U/L (12-78); Albumin Level 4.4 g/dl (3.5-5.0); Albumin/Globulin Ratio 1.6 (1.1-1.8); Alkaline Phosphatase 73 U/L (38-126); Anion Gap 9.3 mEq/L (5-15); Aspartate Amino Transferase 34 U/L (14-36); Bilirubin,Total 0.5 mg/dl (0.2-1.3); Blood Urea Nitrogen 23 mg/dl (7-17); Calcium 9.2 mg/dl (8.4-10.2); Carbon Dioxide 33 mmol/L (22.0-30.0); Chloride 102 mmol/L (98-107); Estimated Glomerular Filt Rate 77 ml/min (>60); GFR (African American) 93 ML/MIN (>60); Globulin 2.7 g/dL (1.3-3.2); Glucose 105 mg/dl (74-100); Potassium 4.3 mmoL/L (3.5-5.1); Sodium 140 mmol/L (136-145); Total Protein,Serum 7.1 g/dl (6.3-8.2)
[2022-08-08 11:19] LABS: C-Reactive Protein 1.5 mg/L (0-4)
[2022-08-09 11:15] LABS: RA Latex Turbid. <10.0 IU/mL (<14.0)
[2022-08-09 15:01] LABS: Anti-Centromere B Antibodies <0.2 AI (0.0-0.9); Anti-Cyclic Citrullinated Pept 3 units (0-19); Anti-DNA (DS) Ab Qn 2 IU/mL (0-9); Anti-Jo-1 <0.2 AI (0.0-0.9); Anti-Smith Antibody <0.2 AI (0.0-0.9); Antichromatin Antibodies <0.2 AI (0.0-0.9); Antiscleroderma-70 Antibodies 0.3 AI (0.0-0.9); RNP Antibodies <0.2 AI (0.0-0.9); Sjogren's Anti-SS-A <0.2 AI (0.0-0.9); Sjogren's Anti-SS-B <0.2 AI (0.0-0.9)
== END ==
LOC: LAB 09:33
PROVIDERS: PCP Nurse Practitioner Family; Visit Provider Student in an Organized Health Care Education/Training Program
DX: M79.604 Pain in right leg (principal); R73.9 Hyperglycemia, unspecified
CPT/HCPCS: 36415; 80053; 83036; 85025; 85651; 86140; 86200; 86225; 86235; 86431

== ENCOUNTER → 2022-08-11 09:51 | Outpatient (CLI) | payer BC, SELFPAY ==
--- NOTE | 2022-08-11 09:57 | US_ITS ---
FINAL REPORT CLINICAL HISTORY: right thigh pain, swelling COMPARISON: None FINDINGS: ULTRASOUND SOFT TISSUE LIMITED Sonographic images of the area of interest in the right mid thigh were obtained. There is no mass identified. No abnormal fluid collection the area of interest. IMPRESSION: Unremarkable ultrasound soft tissues right thigh. Reviewed, Interpreted and Dictated by Parrish Moody III, MD Transcribed by Donna Hoskins Authenticated and . [facility]
--- NOTE | 2022-08-11 09:57 | CA_ITS ---
FINAL REPORT TECHNIQUE: Color Doppler, duplex Doppler and compression sonography of the right lower extremity venous system was performed. CLINICAL HISTORY: right thigh pain, swelling, dx with a lipoma 1 yr ago. FINDINGS: There is no evidence of deep venous thrombosis from the level of the groin to the calf. The veins are patent and compressible. IMPRESSION: No evidence of deep venous thrombosis right lower extremity. Reviewed, Interpreted and Dictated by Parrish Moody III, MD Transcribed by Lauren Senior Authenticated and [facility]
--- NOTE | 2022-12-28 13:41 | PC.NURSE ---
I have called and left numerous messages about a HST with no return calls.
== END ==
LOC: RAD 09:54
PROVIDERS: PCP Nurse Practitioner Family; Visit Provider Student in an Organized Health Care Education/Training Program
DX: M79.604 Pain in right leg (principal); M79.89 Other specified soft tissue disorders
CPT/HCPCS: 76882; 93971

== ENCOUNTER → 2023-01-11 13:56 | Outpatient (CLI) | payer BC, SELFPAY ==
--- NOTE | 2023-01-11 14:27 | XR_ITS ---
FINAL REPORT CLINICAL HISTORY: low back pain COMPARISON: 10/31/2021 FINDINGS: No fracture is identified. Disc spaces are well-preserved. Alignment is normal. IMPRESSION: Unremarkable lumbar spine series. Reviewed, Interpreted and Dictated by Sivakumar Lanier MD Transcribed by Lori Porras Authenticated and [facility]
[2023-01-11 15:16] LABS: Chloride 109 mmol/L (98-107)
[2023-01-11 15:17] LABS: Sodium 145 mmol/L (136-145)
[2023-01-11 15:19] LABS: Alanine Aminotransferase 39 U/L (12-78); Aspartate Amino Transferase 37 U/L (14-36); Blood Urea Nitrogen 20 mg/dl (7-17); Carbon Dioxide 26 mmol/L (22.0-30.0); Estimated Glomerular Filt Rate 89 ml/min (>60); GFR (African American) 108 ML/MIN (>60)
[2023-01-11 15:20] LABS: Albumin Level 4.3 g/dl (3.5-5.0); Albumin/Globulin Ratio 1.7 (1.1-1.8); Alkaline Phosphatase 70 U/L (38-126); Bilirubin,Total 0.5 mg/dl (0.2-1.3); Calcium 9.5 mg/dl (8.4-10.2); Globulin 2.6 g/dL (1.3-3.2); Glucose 101 mg/dl (74-100); Total Protein,Serum 6.9 g/dl (6.3-8.2)
== END ==
LOC: LAB 13:57
PROVIDERS: PCP Student in an Organized Health Care Education/Training Program; Visit Provider Student in an Organized Health Care Education/Training Program
DX: I10 Essential (primary) hypertension (principal); M54.9 Dorsalgia, unspecified; M54.50 Low back pain, unspecified; B96.29 Other Escherichia coli [E. coli] as the cause of diseases classified elsewhere
CPT/HCPCS: 36415; 72100; 80053; 87086; 87088; 87186

== ENCOUNTER → 2023-01-11 23:15 | Outpatient (CLI) | payer BC, SELFPAY | LOC: LAB.DROPOF 23:16 | PROVIDERS: PCP Nurse Practitioner Family; Visit Provider Student in an Organized Health Care Education/Training Program | DX: M54.9 Dorsalgia, unspecified (principal); B96.29 Other Escherichia coli [E. coli] as the cause of diseases classified elsewhere | CPT/HCPCS: 87086; 87088; 87186 ==

== ENCOUNTER → 2023-03-26 10:49 | Outpatient (CLI) | payer BC, SELFPAY | LOC: SL 10:50 | PROVIDERS: PCP Student in an Organized Health Care Education/Training Program; Visit Provider Student in an Organized Health Care Education/Training Program | DX: G47.33 Obstructive sleep apnea (adult) (pediatric) (principal); G47.36 Sleep related hypoventilation in conditions classified elsewhere; R40.0 Somnolence; R06.83 Snoring | CPT/HCPCS: G0399 ==

== ENCOUNTER → 2023-03-27 09:36 | Outpatient (CLI) | payer BC, SELFPAY ==
--- NOTE | 2023-03-27 09:40 | XR_ITS ---
FINAL REPORT TECHNIQUE: Chest PA & Lateral CLINICAL HISTORY: left sided rib pain, h/o fracture FINDINGS: 2 views of the chest were performed. The heart size is normal. The mediastinum is within normal limits. There is mild atelectasis or scarring in the left lung base. There are no pleural effusions. There is no pneumothorax. There is S-shaped scoliosis of the thoracic spine. IMPRESSION: Mild left base atelectasis or scarring. Reviewed, Interpreted and Dictated by Parrish Moody III, MD Transcribed by Jose Maria Cottrell Authenticated and [facility] [place] [place]
== END ==
LOC: RAD 09:37
PROVIDERS: PCP Student in an Organized Health Care Education/Training Program; Visit Provider Student in an Organized Health Care Education/Training Program
DX: R07.81 Pleurodynia (principal)
CPT/HCPCS: 71046

== ENCOUNTER 2023-06-25 08:56 | Outpatient (CLI) | payer BC, SELFPAY ==
[2023-06-25 09:11] LABS: Basophils # 0.1 K/mm3 (0-0.2); Basophils % 1.2 % (0.1-2.0); Eosinophils # 0.3 K/mm3 (0.0-0.4); Eosinophils % 4.5 % (0.1-12.0); Hematocrit 42.2 % (37.0-47.0); Hemoglobin 13.9 g/dL (12.2-16.2); Lymphocytes # 2.2 K/mm3 (0.7-4.5); Lymphocytes % 33.4 % (10-50); Mean Corpuscular HGB Conc 32.9 g/dL (31.8-35.4); Mean Corpuscular Hemoglobin 29.8 pg (27.0-31.2); Mean Corpuscular Volume 90.6 fl (81-99); Mean Platelet Volume 8.5 fl (7.4-10.4); Monocytes # 0.5 K/mm3 (0.1-1.0); Monocytes % 7.1 % (1.7-9.3); Neutrophils # 3.5 K/mm3 (1.8-7.8); Neutrophils % 53.8 % (37.0-80.0); Platelet Count 196 K/mm3 (142-424); Red Blood Count 4.66 M/mm3 (4.20-5.40); White Blood Count 6.6 K/mm3 (4.8-10.8)
[2023-06-25 09:54] LABS: Alanine Aminotransferase 36 U/L (12-78); Albumin Level 4.7 g/dl (3.5-5.0); Albumin/Globulin Ratio 1.9 (1.1-1.8); Alkaline Phosphatase 71 U/L (38-126); Anion Gap 10.1 mEq/L (5-15); Aspartate Amino Transferase 37 U/L (14-36); Bilirubin,Total 0.7 mg/dl (0.2-1.3); Blood Urea Nitrogen 18 mg/dl (7-17); Calcium 9.8 mg/dl (8.4-10.2); Carbon Dioxide 31 mmol/L (22.0-30.0); Chloride 104 mmol/L (98-107); Estimated Glomerular Filt Rate 77 ml/min (>60); GFR (African American) 93 ML/MIN (>60); Globulin 2.5 g/dL (1.3-3.2); Glucose 108 mg/dl (74-100); Potassium 4.1 mmoL/L (3.5-5.1); Sodium 141 mmol/L (136-145); Total Protein,Serum 7.2 g/dl (6.3-8.2)
== END 2023-06-25 23:59 ==
LOC: LAB 08:57
PROVIDERS: PCP Student in an Organized Health Care Education/Training Program; Visit Provider Nurse Practitioner
DX: K92.1 Melena (principal); R16.1 Splenomegaly, not elsewhere classified
CPT/HCPCS: 36415; 80053; 85025

== ENCOUNTER 2023-08-09 12:32 | Day surgery (SDC) | payer BC, SELFPAY ==
[2023-08-06 09:55] VITALS: BMI 35.1
[2023-08-09] MEDS: LACTATED RINGERS 1000ML 1,000 ML 25 ML IV (12:46)
[2023-08-09 12:51] VITALS: BP 161/101; PULSE 68; RESP 18; TEMP 36.2; O2SAT 98
--- NOTE | 2023-08-09 13:17 | EXP.ANES.CKL ---
[facility] Disclaimer: The information contained in this section may have been updated after the patient was seen, as this information can be updated by other users. Medical History Hyperlipidemia Hypertension Edema Diastolic dysfunction Endothelial dysfunction of coronary artery Fatigue Dizziness Dyspnea Abnormal ECG Chest pain Bronchitis Viral syndrome Pneumonia due to COVID-19 virus Surgical History History of hysterectomy History of bladder repair surgery History of hernia repair History of appendectomy History of partial surgical removal of colon Family History Other Coronary artery disease Diabetes Heart attack Hypertension Social History Smoking Status: Never smoker second hand exposure: No alcohol intake: current substance use type: denies use current occupational status: employed Travel in the last 8 weeks: None household members: spouse housing: house marital status: current occupational exposures/hazards: No [facility] Anesthesia Checklist Patient Identification Patient Identification: Arm Band and Verbal (Name & ) Structural Data Admitted From: Home Planned Operative Procedure/s: EGD/Colonoscopy Consent for Planned Operative Procedure(s) Verified: Yes NPO Status Verified Time NPO: 00:00 Additional verifications Patient : No Anesthesia Reactions: No Airway Assessment Mallampati Score:: Class III C-Spine Mobility Assessed: Yes TMJ Mobility Assessed: Yes Dentition: Poor Dentition Neurological Assessment Level of Consciousness: Awake Hx Seizures: No Numbness or tingling in extremities: No Anesthesia Plan Anesthesia Risk discussed: Yes Anesthesia Plan: Verified ASA Class: II Anesthesia Type: MAC
[2023-08-09 14:21] VITALS: O2SAT 98
--- NOTE | 2023-08-09 14:46 | HMH.SCOPE ---
Procedure: Date: 08/09/23 Patient Date of :: 1975 Procedure Performed:: EGD and dilation Indications:: Dysphagia especially to solids Performing Provider:: Talita Townsend MD Referring Provider:: Brandie Townsend APRN Sedation:: Propofol Procedure:: The gastroscope was gently passed through the incisoral orifice into the oral cavity and under direct visualization the esophagus was intubated. The endoscope was passed down the esophagus, through the stomach, and into the duodenum. Color, texture, mucosa, and anatomy of the esophagus, stomach, and duodenum were carefully examined with the scope. Findings:: Oropharynx: normal Esophagus: normal, dilated with 58 F bougie EG Junction: intact at 40 cm Cardia: normal Fundus: normal Body: normal Antrum: normal Duodenal bulb: normal Duodenum (second and third portion): normal Impression: Symptomatic dysphagia treated with bougie dilation Recommendations:: Repeat EGD and dilation in about THREE years or so, sooner if clinically indicated Complications:: None Estimated blood obtained (mL): 0 Colonoscopy Component Colonoscopy Component Was a colonoscopy performed during today's procedure?: No
--- NOTE | 2023-08-09 14:49 | HMH.SCOPE ---
Procedure: Date: 08/09/23 Patient Date of :: 1975 Procedure Performed:: Screening colonoscopy Indications:: Colon cancer screening. Personal history of colon surgery Constipation Performing Provider:: Talita Townsend MD Referring Provider:: Brandie Townsend APRN Sedation:: Propofol Procedure:: After placing the patient in the left lateral decubitus position, the colonoscopy was gently inserted into the rectum and under direct visualization advanced to the cecum which was identified by transillumination in the right lower quadrant, identification of the ileocecal valve, appendiceal orifice, and cecal strap. Color, texture, mucosa, and anatomy of the colon were carefully examined with the scope. Findings:: Anal canal: normal Rectum: normal Sigmoid colon: normal without polyps or inflammatory changes, moderate diverticulosis Descending colon: normal without polyps or inflammatory changes Splenic flexure: normal Transverse colon: normal without polyps or inflammatory changes Hepatic flexure: normal Ascending colon: Resected, anastomosis widely patent Cecum: Resected Terminal ileum: not visualized Impression: Unremarkable post R-hemicolectomy anatomy Sigmoid diverticulosis Recommendations:: Follow up examination in about TEN years or so, sooner if clinically indicated. F/U with GI Clinic Complications:: None Estimated blood obtained (mL): 0 Colonoscopy Component Colonoscopy Component Was a colonoscopy performed during today's procedure?: Yes Recommended follow up colonoscopy of at least 10 years?: Yes
[2023-08-09 14:55] VITALS: BP 102/66; PULSE 88; RESP 17; TEMP 36.1; O2SAT 91
[2023-08-09 15:05] VITALS: BP 106/68; PULSE 86; RESP 17; TEMP 36.1; O2SAT 91
[2023-08-09 15:15] VITALS: BP 97/72; PULSE 86; RESP 17; TEMP 36.1; O2SAT 91
[2023-08-09 15:25] VITALS: BP 117/63; PULSE 84; RESP 17; TEMP 36.1; O2SAT 92
== END 2023-08-09 15:36 | disposition home or self-care (01) ==
PROVIDERS: PCP Student in an Organized Health Care Education/Training Program; Visit Provider Internal Medicine Gastroenterology
PROC: 0DJ08ZZ Inspection of Upper Intestinal Tract, Via Natural or Artificial Opening Endoscopic (ICD-10-PCS; CPT 43235; principal; 2023-08-09 13:30)
DX: R13.10 Dysphagia, unspecified (principal); Z12.11 Encounter for screening for malignant neoplasm of colon; Z90.49 Acquired absence of other specified parts of digestive tract; K57.30 Diverticulosis of large intestine without perforation or abscess without bleeding
CPT/HCPCS: 43248; 45378

== ENCOUNTER 2023-09-27 09:19 | Outpatient (CLI) | payer BC, SELFPAY ==
[2023-09-27 10:05] LABS: Basophils # 0.2 K/mm3 (0-0.2); Eosinophils # 0.4 K/mm3 (0.0-0.4); Eosinophils % 6.2 % (0.1-12.0); Hematocrit 41.7 % (37.0-47.0); Hemoglobin 13.7 g/dL (12.2-16.2); Lymphocytes # 1.9 K/mm3 (0.7-4.5); Lymphocytes % 28.8 % (10-50); Mean Corpuscular HGB Conc 32.8 g/dL (31.8-35.4); Mean Corpuscular Volume 88.6 fl (81-99); Mean Platelet Volume 9.2 fl (7.4-10.4); Monocytes # 0.4 K/mm3 (0.1-1.0); Monocytes % 5.6 % (1.7-9.3); Neutrophils # 3.7 K/mm3 (1.8-7.8); Neutrophils % 56.4 % (37.0-80.0); Platelet Count 203 K/mm3 (142-424); Red Blood Count 4.71 M/mm3 (4.20-5.40); Red Cell Distribution Width 14.2 % (11.5-17.5); White Blood Count 6.5 K/mm3 (4.8-10.8)
[2023-09-27 10:53] LABS: Chloride 106 mmol/L (98-107); Sodium 142 mmol/L (136-145)
[2023-09-27 10:55] LABS: Alanine Aminotransferase 45 U/L (12-78); Aspartate Amino Transferase 42 U/L (14-36); Blood Urea Nitrogen 20 mg/dl (7-17); Estimated Glomerular Filt Rate 89 ml/min (>60); GFR (African American) 108 ML/MIN (>60)
[2023-09-27 10:56] LABS: Albumin Level 4.5 g/dl (3.5-5.0); Albumin/Globulin Ratio 1.7 (1.1-1.8); Alkaline Phosphatase 66 U/L (38-126); Bilirubin,Total 0.4 mg/dl (0.2-1.3); Calcium 10.1 mg/dl (8.4-10.2); Chol/HDL Ratio 4.8 (1-3.5); Cholesterol 164 mg/dl (140-200); Globulin 2.6 g/dL (1.3-3.2); Glucose 119 mg/dl (74-100); HDL Cholesterol 34 mg/dl (40-60); Iron 73 ug/dL (37-170); Total Protein,Serum 7.1 g/dl (6.3-8.2); Triglycerides 189 mg/dl (30-150); VLDL Cholesterol 38 mg/dL (0-40)
[2023-09-27 11:06] LABS: Total Iron Binding Capacity 313 ug/dL (265-497)
[2023-09-27 11:11] LABS: Direct LDL Cholesterol 92.03 mg/dL (100-129)
[2023-09-27 11:29] LABS: Hemoglobin A1C 5.7 % (4.0-6.0)
[2023-09-27 11:34] LABS: Ferritin 73.3 ng/ml (6.24-137)
[2023-09-27 12:30] LABS: 25-OH Vitamin D, Total 44.2 ng/mL (30-100)
[2023-09-27 13:27] LABS: Folate > 20.00 ng/mL
[2023-09-27 13:29] LABS: Vitamin B12 548 pg/mL (239-931)
[2023-09-27 13:30] LABS: Carbon Dioxide 28 mmol/L (22.0-30.0)
[2023-09-28 13:13] LABS: DHEA-Sulfate 38.6 ug/dL (41.2-243.7); Estradiol <5.0 pg/mL (.); FSH 89.9 mIU/mL (.); LH 39.7 mIU/mL (.)
== END 2023-09-27 23:59 | disposition home or self-care (01) ==
PROVIDERS: PCP Student in an Organized Health Care Education/Training Program; Visit Provider Student in an Organized Health Care Education/Training Program
DX: R53.83 Other fatigue (principal); R23.2 Flushing; E66.9 Obesity, unspecified; Z13.1 Encounter for screening for diabetes mellitus; Z13.21 Encounter for screening for nutritional disorder; Z13.29 Encounter for screening for other suspected endocrine disorder; Z68.35 Body mass index [BMI] 35.0-35.9, adult; I10 Essential (primary) hypertension
CPT/HCPCS: 36415; 80050; 80053; 80061; 82306; 82607; 82626; 82670; 82728; 82746; 83001; 83002; 83036; 83540; 83550; 84443; 85025

== ENCOUNTER 2023-10-05 07:50 | Outpatient (CLI) | payer BC, SELFPAY ==
[2023-10-05] MEDS: ALBUTEROL 0.083% 2.5 MG/3 ML NEB IH (08:31)
--- NOTE | 2023-10-05 08:31 | PC.NURSE ---
PFT completed without incident. Albuterol 0.083% given via HHN, per written protocol, Pt tolerated tx well.
== END 2023-10-05 23:59 | disposition home or self-care (01) ==
LOC: RT 07:50
PROVIDERS: PCP Student in an Organized Health Care Education/Training Program; Visit Provider Student in an Organized Health Care Education/Training Program
DX: R06.09 Other forms of dyspnea (principal)
CPT/HCPCS: 94060; 94726; 94729; J7613

== ENCOUNTER 2023-10-23 19:25 | Outpatient (CLI) | payer BC, SELFPAY ==
[2023-10-23 21:16] LABS: Free Thyroxine Index 2.2 ug/dL (5.93-13.13); T4 (Thyroxine) 6.8 ug/dl (5.53-11.0); Triiodothryronine (T3) Uptake 32 % (23.5-40.5)
[2023-10-24 10:39] LABS: Thyroid Stimulating Hormone 1.01 uIU/mL (0.465-4.68)
[2023-10-25 08:18] LABS: Thyroid Peroxidase Antibodies <9 IU/mL (0-34)
[2023-10-26 19:20] LABS: Thyroid Stimulating Immunoglob <0.10 IU/L (0.00-0.55)
== END 2023-10-23 23:59 | disposition home or self-care (01) ==
LOC: LAB.DROPOF 19:27
PROVIDERS: PCP Student in an Organized Health Care Education/Training Program; Visit Provider Student in an Organized Health Care Education/Training Program
DX: R79.89 Other specified abnormal findings of blood chemistry (principal)
CPT/HCPCS: 84436; 84443; 84445; 84479; 86376

== ENCOUNTER 2024-03-31 10:45 | Outpatient (CLI) | payer BC, SELFPAY ==
--- NOTE | 2024-03-31 10:48 | XR_ITS ---
FINAL REPORT CLINICAL HISTORY: neck pain R facial numbness/tingling L & R hands tingling FINDINGS: 7 views of the cervical spine were obtained. Patient is status post fusion at C5, C6 and C7. There are mild degenerative changes with osteophytes. There is no fracture or subluxation. IMPRESSION: No acute bony abnormality. Reviewed, Interpreted and Dictated by Parrish Moody III, MD Transcribed by Ana Paula Luna Authenticated and [facility]
== END 2024-03-31 23:59 | disposition home or self-care (01) ==
LOC: RAD 10:46
PROVIDERS: PCP Student in an Organized Health Care Education/Training Program; Visit Provider Student in an Organized Health Care Education/Training Program
DX: M54.2 Cervicalgia (principal)
CPT/HCPCS: 72050